=== PATIENT | female | born 2000 | race Caucasian/White ===

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

== ENCOUNTER 2021-02-11 13:02 | Emergency (ER) | payer OTHER ==
[2021-02-11 13:16] VITALS: BP 125/75
[2021-02-11] MEDS ORDERED: VIEN1TAB PO (13:23)
== END 2021-02-11 15:25 | disposition left against medical advice (07) ==
LOC: M ED 13:02 → EDBD 13:02 → M ED 15:25
DX: Z53.21 Procedure and treatment not carried out due to patient leaving prior to being seen by health care provider (principal)

== ENCOUNTER → 2025-06-18 | Outpatient (RCR) ==
[~2025-06-18] MED LIST: VIEN1TAB PO
== END ==
LOC: M EMPSSV 05-22 14:25
PROVIDERS: ATTEND Family Medicine
DX: Z20.828 Contact with and (suspected) exposure to other viral communicable diseases (principal)